=== PATIENT | female | born 1995 | race Caucasian/White ===

== ENCOUNTER 2016-12-26 22:23 | Emergency (ER) | payer OTHER ==
[2016-12-26 22:39] VITALS: BP 99/51; BMI 19.1
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
[2016-12-26] MEDS ORDERED: FIORICET TAB PO ONE ×2 (23:54→23:58)
== END 2016-12-27 00:04 | disposition home or self-care (01) ==
LOC: ER 22:23
DX: G40.309 Generalized idiopathic epilepsy and epileptic syndromes, not intractable, without status epilepticus (principal)
CPT/HCPCS: 99282

== ENCOUNTER 2017-07-13 19:13 | Emergency (ER) | payer OTHER ==
[2017-07-13 19:22] VITALS: BP 103/59; BMI 23.2
--- NOTE | 2017-07-13 19:55 | DR.GENAD ---
HPI - PCP Primary Care Physician: Yayo - Complaint/Symptoms Chief Complaint:: Started taking a different blood thinner today and has began having tingling sensations in legs and shortness of breath - Source History Provided: Patient - Mode of Arrival Mode of Arrival: Ambulatory - Timing Onset of Chief Complaint: 07/13/17 PMH - PMH Past Medical History: Yes Past Medical History: Seizures Past Medical History Comment: DVT Past Surgical History: Yes Past Surgical History Comment: Brain surgery for DVT - Family History History of Family Medical Conditions: Yes Family Medical History: Diabetes Mellitus, MA, Coronary Artery Disease, Hypertension - Social History Does patient currently use any type of tobacco product: Yes Have you used tobacco products in the last 12 months: Yes Type of Tobacco Use: Cigarettes Does any household member use tobacco: Yes Alcohol Use: None Do you use any recreational Drugs:: No Lives With: Family Lives Where: Home - infectious screening In the last 2 months have you had wt loss of >10#?: NO Have you had fever, night sweats or hemotysis?: No Have you traveled outside the country in the last 6 months?: No Isolation: Standard ROS - Review of Systems Eyes: No Symptoms Reported ENTM: No Symptoms Reported Respiratoy: No Symptoms Reported Cardiovascular: No Symptoms Reported Gastrointestinal/Abdominal: No Symptoms Reported Genitourinary: No Symptoms Reported Neurological: No Symptoms Reported Musculoskeletal: No Symptoms Reported Integumentary: No Symptoms Reported Hematologic/Lymphatic: No Symptoms Reported Endocrine: No Symptoms Reported Psychiatric: No Symptoms Reported All Other Systems: Reviewed and Negative PE - Vital Signs Vitals: Temperature 98.6 F Pulse Rate 94 Respiratory Rate 18 Blood Pressure 103/59 O2 Sat by Pulse Oximetry 98 - General Limitations: No Limitations General Appearance: Alert, In No Apparent Distress - Head Head Exam: Normal Inspection, Atraumatic - Eyes Eye exam: Normal Appearance, PERRL, EOMI - ENT ENT Exam: Normal Exam, Normal Oropharynx External Ear Exam: Normal External Inspection TM/Canal Exam: Bilateral Normal Nose Exam: Normal Nose Exam Mouth Exam: Normal Inspection Throat Exam: Normal Inspection - Neck Neck Exam: Normal Inspection - Chest Chest Inspection: Normal Inspection - Respiratory Respiratory Exam: Normal Lung Sounds Bilat Respiratory Exam: Bilateral Clear to Auscultation - Cardiovascular Cardiovascular Exam: Regular Rate, Normal Rhythm - Abdominal Exam Abdominal Exam: Normal Inspection, Normal Bowel Sounds Abdominal Tenderness: negative: RUQ, RLQ, LUQ, LLQ, Epigastrium, Suprapubic, Diffuse, Mild, Moderate, Severe, Other - Extremities Extremities Exam: Normal Inspection, Full ROM - Back Back Exam: Normal Inspection - Neurologic Neurological Exam: Alert, Oriented X3, CN II-XII Intact - Psychiatric Psychiatric Exam: Normal Affect - Skin Skin Exam: Warm, Dry, Intact, Normal Color. negative: Rash, Cyanosis, Diaphoresis, Pallor ROR - Labs Reviewed Result Diagrams: 07/13/17 20:15 Laboratory: WBC 7.7 X10^3/uL (3.6-10.0) 07/13/17 20:15 RBC 3.68 X10^6/uL (3.5-5.4) 07/13/17 20:15 Hgb 10.7 g/dL (12.0-16.0) L 07/13/17 20:15 Hct 31.2 % (36.0-47.0) L 07/13/17 20:15 MCV 84.7 fL (80.0-100.0) 07/13/17 20:15 MCH 28.9 pg (27.0-34.0) 07/13/17 20:15 MCHC 34.2 g/dL (33.0-35.0) 07/13/17 20:15 RDW 15.8 % (11.6-16.5) 07/13/17 20:15 Plt Count 282 X10^3/uL (150.0-450.0) 07/13/17 20:15 MPV 8.6 fL (7.4-11.0) 07/13/17 20:15 Neut % 59.0 % (42.0-75.0) 07/13/17 20:15 Lymph % 29.7 % (21.0-51.0) 07/13/17 20:15 [place] % 7.5 % (0.0-13.0) 07/13/17 20:15 Eos % 3.2 % (0.9-2.9) H 07/13/17 20:15 Baso % 0.6 % (0.2-1.0) 07/13/17 20:15 Neut # 4.6 x10^3/uL (2.2-4.8) 07/13/17 20:15 Lymph # 2.3 X10^3/uL (1.3-2.9) 07/13/17 20:15 [place] # 0.6 x10^3/uL (0.3-0.8) 07/13/17 20:15 Eos # 0.2 x10^3/uL (0.0-0.2) 07/13/17 20:15 Baso # 0.0 X10^3/uL (0.0-0.1) 07/13/17 20:15 Absolute Nucleated RBC 0.1 /100WBC 07/13/17 20:15 D-Dimer 264 ng/mL (0-400) 07/13/17 20:15 - Diagnosis Discharge Problem: History of dyspnea - Discharge Plan Condition: Stable - Follow ups/Referrals Follow ups/Referrals: KATELYN ARANDA [Primary Care Provider] - 3 days - Instructions
[2017-07-13] MEDS ORDERED: TYLENOL 325 MG TAB PO ONE ×2 (20:19→20:20)
[2017-07-13 20:25] LABS: BASOPHILS % (AUTO) 0.6 % (0.2-1.0); EOSINOPHILS # (AUTO) 0.2 x10^3/uL (0.0-0.2); EOSINOPHILS % (AUTO) 3.2 % (0.9-2.9); HEMATOCRIT 31.2 % (36.0-47.0); HEMOGLOBIN 10.7 g/dL (12.0-16.0); LYMPHOCYTES # (AUTO) 2.3 X10^3/uL (1.3-2.9); LYMPHOCYTES % (AUTO) 29.7 % (21.0-51.0); MEAN CORPUSCULAR HEMOGLOBIN 28.9 pg (27.0-34.0); MEAN CORPUSCULAR HGB CONC 34.2 g/dL (33.0-35.0); MEAN CORPUSCULAR VOLUME 84.7 fL (80.0-100.0); MEAN PLATELET VOLUME 8.6 fL (7.4-11.0); MONOCYTES # (AUTO) 0.6 x10^3/uL (0.3-0.8); MONOCYTES % (AUTO) 7.5 % (0.0-13.0); NEUTROPHILS # (AUTO) 4.6 x10^3/uL (2.2-4.8); PLATELET COUNT 282 X10^3/uL (150.0-450.0); RED BLOOD COUNT 3.68 X10^6/uL (3.5-5.4); RED CELL DISTRIBUTION WIDTH 15.8 % (11.6-16.5); WHITE BLOOD COUNT 7.7 X10^3/uL (3.6-10.0)
== END 2017-07-13 21:15 | disposition home or self-care (01) ==
LOC: ER 19:24
DX: R06.02 Shortness of breath (principal)
CPT/HCPCS: 36415; 85025; 85378; 99282